=== PATIENT | female | born 1975 | race Caucasian/White ===

== ENCOUNTER 2024-08-26 16:29 | Emergency (ER) | payer MEDICAID ==
[~2024-08-26] VITALS: Ht 157.5 cm; Wt 82.0 kg
[2024-08-26 16:44] VITALS: O2SAT 99
[2024-08-26 16:45] VITALS: BP 186/76; PULSE 80; RESP 18; TEMP 36.6; O2SAT 99
[2024-08-26] MEDS ORDERED: AMOX1TAB16 MT (17:55)
== END 2024-08-26 18:13 | disposition home or self-care (01) ==
LOC: ER 16:29
DX: K02.9 Dental caries, unspecified (principal); I10 Essential (primary) hypertension
CPT/HCPCS: 99283